=== PATIENT | female | born 1965 | race Caucasian/White ===

== ENCOUNTER 2024-01-12 16:51 | Emergency (ER) | payer OTHER, SELFPAY ==
[2024-01-12] VITALS (16 sets, daily range): BP systolic 92–134; BP diastolic 48–79; PULSE 80–108; TEMP 36.6; O2SAT 96–100; BMI 17.5
--- NOTE | 2024-01-12 17:00 | ECG_ITS ---
[facility] Test Date: 2024-01-12 Pat Name: GAUTAM RIDLEY Department: Room: - Gender: Female [employer]: : 1965 Requested By: Order Number: [id number] Reading MD: DAVEY SMITH Measurements Intervals [place] Rate: 98 P: 63 IN: 164 QRS: 66 QRSD: 72 T: 53 QT: 344 QTc: 400 Interpretive Statements 1100 Sinus rhythm 9110 normal ECG No previous ECG available for comparison Electronically Signed On 01-12-2024 22:40:42 EDT by DAVEY SMITH
--- NOTE | 2024-01-12 17:02 | ED_ITS ---
HPI HPI - General Adult General Chief complaint: Head Injury Stated complaint: GI BLEED Time Seen by Provider: 01/12/24 16:59 History of Present Illness HPI narrative: Patient is a 58-year-old female with a history of bipolar disorder, anxiety who presents to the ER for outpatient imaging that was abnormal. Patient was seen by her PCP on 01/07/2024 reporting a 2-week history of balance issues, increase in frequent falls and memory difficulty. PCP ordered an outpatient CT on 01/07/2024 which was performed today. 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 She states she has had difficulty with her balance and falling frequently, though she has had no dizziness, headaches, visual changes, chest pain. She takes bipolar medication and anxiety medication. She is not anticoagulated. She denies any other areas of injury. Her most recent fall was 3 to 4 days ago. She has no new complaints of injury or pain from that. CT was performed 4 hours ago at The PCP office. Related Data Allergies Allergy/AdvReac Type Severity Reaction Status Date / Time hydrocodone Allergy Intermediate Agitated Verified 01/12/24 17:04 Opioid HPI Opioid Management Most Recent Opioid Data: No Data to Display Review of Systems ROS Constitutional Denies: fever or chills Eyes Denies: change in vision Ears, nose, mouth, and throat Denies: nasal congestion Cardiovascular Denies: chest pain Respiratory Denies: shortness of breath Gastrointestinal Denies: nausea or vomiting Musculoskeletal Denies: back pain or neck pain Integumentary/Breast Denies: rash Neurological Denies: headache, numbness in extremities, weakness in extremities or dizziness Hematologic/Lymphatic Denies: easy bruising or easy bleeding Exam Narrative Exam Narrative: Gen.: Awake, alert, in no distress Head: Normocephalic, atraumatic ENT: Moist mucous membranes, No facial or dental injury Respiratory: No respiratory distress, lungs clear bilaterally Cardio: Regular rate and rhythm Gastrointestinal: Abdomen is soft, nondistended and nontender to palpation Extremities: Moves extremities equally, Healing ecchymosis to the left medial knee, no bony tenderness of the extremities Psych: Normal mood and affect Neuro: No focal neuro deficit, Awake and ambulatory. Clear speech. Oriented with no focal neurodeficits Skin: Warm, dry, intact Constitutional Vital Signs, click to edit/add: Last Vital Signs Temp 97.9 F 01/12/24 16:56 Pulse 104 H 01/12/24 16:56 Resp 15 01/12/24 16:56 BP 134/75 01/12/24 16:56 Pulse Ox 98 01/12/24 16:56 O2 Del Method Room Air 01/12/24 16:56 Course Vital Signs Vital signs: Vital Signs Temperature 97.9 F 01/12/24 16:56 Pulse Rate 104 H 01/12/24 16:56 Respiratory Rate 15 01/12/24 16:56 Blood Pressure 134/75 01/12/24 16:56 Pulse Oximetry 98 01/12/24 16:56 Oxygen Delivery Method Room Air 01/12/24 16:56 Temperature 97.9 F 01/12/24 16:56 Pulse Rate 104 H 01/12/24 16:56 Respiratory Rate 15 01/12/24 16:56 Blood Pressure 134/75 01/12/24 16:56 Pulse Oximetry 98 01/12/24 16:56 Oxygen Delivery Method Room Air 01/12/24 16:56 Medical Decision Making MDM Narrative Medical decision making narrative: Outpatient CT findings: Large right-sided extra-axial loculated, septated fluid collection with several nodular, linear portions of increased density consistent with a mixed subdural hematoma, maximum diameter 2 cm.Anterior extension approaches midline along the anterior cranial fossa, posterior extension to the level of the posterior occipital horn, craniad extension approaches 2 cm from the vertex. Extrinsic impression of the right ventricular system with no localized enlargement to suggest outflow obstruction. No parenchymal hemorrhage.Right-sided intra-axial edema with leftward midline shift approximating 6 mm. Patient was treated with 0.5 mg IV Ativan for her anxiety on arrival to the ER. She otherwise has no focal medical complaints. She declined the need for any pain medication and her blood pressure is stable. She is hemodynamically stable at time of transfer. She request transfer to tertiary care at [facility]. I discussed the case with neurosurgeon, Dr. Rubio. Patient will be sent by ambulance to neuro ICU versus ER depending on bed availability. Critical care time 35 minutes. Medical Records Medical records reviewed: Yes I reviewed the patient's medical records Lab Data Lab results reviewed: Yes I reviewed the patient's lab results Labs: Lab Results 01/12/24 Range/Units 17:10 WBC 9.2 (4.0-11.0) 10^3/uL RBC 3.45 L (4.20-5.40) 10^6/uL Hgb 11.1 L (12.0-16.0) g/dL Hct 33.7 L (36.0-48.0) % MCV 97.7 (81.0-99.0) fL MCH 32.2 (26.7-34.0) pg MCHC 32.9 (29.9-35.2) g/dL RDW 13.2 (11.0-15.0) % Plt Count 312 (150-450) 10^3/uL MPV 9.8 (9.5-13.5) fL Neut % (Auto) 65.5 (43.0-75.0) % Lymph % (Auto) 24.8 (20.5-60.0) % Cotton % (Auto) 6.0 (1.7-12.0) % Eos % (Auto) 2.6 (0.9-7.0) % Baso % (Auto) 0.9 (0.2-2.0) % Neut # (Auto) 6.0 (1.4-6.5) 10^3/uL Lymph # (Auto) 2.3 (1.2-3.8) 10^3/uL Cotton # (Auto) 0.6 (0.3-0.8) 10^3/uL Eos # (Auto) 0.2 (0.0-0.7) 10^3/uL Baso # (Auto) 0.1 (0.0-0.1) 10^3/uL Abs Immat Gran (auto) 0.02 (0.00-0.03) 10^3/uL Imm/Tot Granulo (auto) 0.2 (0.0-0.5) % PT 10.2 (9.0-11.6) sec INR 0.96 Sodium 138 (136-145) mmol/L Potassium 3.3 L (3.5-5.1) mmol/L Chloride 101 (98-107) mmol/L Carbon Dioxide 27.9 (21.0-32.0) mmol/L Anion Gap 12.4 BUN 9.0 (7.0-18.0) mg/dL Creatinine 0.71 (0.55-1.02) mg/dL Est GFR ( Amer) >60 (>=60) Est GFR (Non-Af Amer) >60 (>=60) BUN/Creatinine Ratio 12.7 Glucose 88 (74-106) mg/dL Calcium 9.1 (8.5-10.1) mg/dL ECG Data Attestation: I personally reviewed and interpreted this ECG as follows: (Rhythm at a rate of 98, no acute ST elevation or ectopy. EKG reviewed by attending physician) Discharge Plan Discharge Chief Complaint: Head Injury Clinical Impression: Acute subdural hematoma Patient Disposition: [facility] Time of Disposition Decision: 17:44 Discharge Location: [facility] Mode of Transportation: EMS Print Language: Tongan Referrals: Physician,Non-Staff, MD [Primary Care Provider] - 1 week
[2024-01-12] MEDS: 0.9 % SODIUM CHLORIDE 1,000 ML 1000 ML IV (17:13)
[2024-01-12] MEDS: LORAZEPAM 2 MG/ML VIAL 0.5 MG IV (17:14)
[2024-01-12 17:17] LABS: Basophils Absolute Auto 0.1 10^3/uL (0.0-0.1); Basophils Percent Auto 0.9 % (0.2-2.0); Eosinophils Absolute Auto 0.2 10^3/uL (0.0-0.7); Eosinophils Percent Auto 2.6 % (0.9-7.0); Hematocrit 33.7 % (36.0-48.0); Hemoglobin 11.1 g/dL (12.0-16.0); Immature Granulocytes Abs Auto 0.02 10^3/uL (0.00-0.03); Immature Granulocytes Pct Auto 0.2 % (0.0-0.5); Lymphocytes Absolute Auto 2.3 10^3/uL (1.2-3.8); Lymphocytes Percent Auto 24.8 % (20.5-60.0); Mean Corpuscular HGB Conc 32.9 g/dL (29.9-35.2); Mean Corpuscular Hemoglobin 32.2 pg (26.7-34.0); Mean Corpuscular Volume 97.7 fL (81.0-99.0); Mean Platelet Volume 9.8 fL (9.5-13.5); Monocytes Absolute Auto 0.6 10^3/uL (0.3-0.8); Neutrophils Percent Auto 65.5 % (43.0-75.0); Platelet Count 312 10^3/uL (150-450); Red Blood Count 3.45 10^6/uL (4.20-5.40); Red Cell Distribution Width 13.2 % (11.0-15.0); White Blood Count 9.2 10^3/uL (4.0-11.0)
[2024-01-12 17:27] LABS: Anion Gap 12.4; BUN Creatinine Ratio 12.7; Calcium 9.1 mg/dL (8.5-10.1); Carbon Dioxide 27.9 mmol/L (21.0-32.0); Chloride 101 mmol/L (98-107); Estimated GFR (African America >60 (>=60); Estimated GFR (Non-African Ame >60 (>=60); Glucose 88 mg/dL (74-106); Potassium 3.3 mmol/L (3.5-5.1); Sodium 138 mmol/L (136-145)
[2024-01-12 17:30] LABS: INR 0.96; Prothrombin Time 10.2 sec (9.0-11.6)
--- NOTE | 2024-01-12 18:59 | PC.NURSE ---
Report called to MAMIE Bran at [facility].
== END 2024-01-12 20:10 | disposition short-term general hospital (02) ==
PROVIDERS: Physician Assistant; Emergency Provider Emergency Medicine
DX: S06.5X0A Traumatic subdural hemorrhage without loss of consciousness, initial encounter (principal); F31.9 Bipolar disorder, unspecified; F41.9 Anxiety disorder, unspecified; Z79.899 Other long term (current) drug therapy
CPT/HCPCS: 36415; 80048; 85025; 85610; 93005; 96374; 99285